=== PATIENT | female | born 1940 | race Caucasian/White ===

== ENCOUNTER → 2016-11-25 | Outpatient (CLI) | payer OTHER ==
[~2016-11-25] MED LIST: HYDR25TA4; METO25TA3; POTA-167
[2016-11-25 08:59] LABS: Urine Bilirubin Negative (Negative); Urine Blood Negative /uL (Negative); Urine Color Yellow (Yellow); Urine Glucose Normal (Normal); Urine Ketone Negative (Negative); Urine Nitrite Negative (Negative); Urine RBC <1 /hpf (0 - 4); Urine Squamous Epithelial Cell FEW /hpf (<5); Urine Urobilinogen Normal (Negative); Urine pH 6.5 (5.0-8.0)
[2016-11-25 09:00] LABS: Basophils # (auto) 0 uL; Basophils % (auto) 0.3 % (0.0-2.0); Eosinophils # (auto) 0.2 uL; Eosinophils % (auto) 3.4 % (0.0-7.0); Hemoglobin 14.1 g/dL (12.2-16.2); Lymphocytes # (auto) 1.5 uL; Lymphocytes % (auto) 21.9 % (10.0-50.0); Mean Corpuscular Hemoglobin 29.1 pg (28.0-32.0); Mean Corpuscular Hgb Conc. 33.5 g/dL (32.0-36.0); Mean Corpuscular Volume 86.8 fL (80.0-100.0); Mean Platelet Volume 8.3 fL (7.4-10.4); Monocytes # (auto) 0.6 uL; Monocytes % (auto) 8.4 % (0.0-12.0); Neutrophils # (auto) 4.5 uL; Platelet Count (auto) 289 10^3/uL (140-450); Red Cell Distribution Width 13.9 % (11.6-16.0); White Blood Cell 6.8 10^3/uL (4.4-10.8)
[2016-11-25 09:21] LABS: Albumin 3.7 g/dL (3.4-5.0); BUN/Creatinine Ratio 12.2; Bilirubin, Total 0.6 mg/dL (0.2-1.0); Potassium 3.3 mmol/L (3.5-5.1); Total Protein 7.6 g/dL (6.4-8.2)
== END | disposition home or self-care (01) ==
LOC: LAB 07:40
PROVIDERS: ATTEND Internal Medicine
DX: E11.9 Type 2 diabetes mellitus without complications (principal); I10 Essential (primary) hypertension; K21.9 Gastro-esophageal reflux disease without esophagitis
CPT/HCPCS: 36415; 80053; 80061; 81001; 82043; 82306; 82378; 82607; 83036; 84439; 84443; 85025; 85652; 86803

== ENCOUNTER 2016-12-10 04:34 | Inpatient (IN) | payer OTHER ==
[~2016-12-10] VITALS: Ht 160 cm; Wt 105.5 kg
[2016-12-10] MEDS ORDERED: ONDANSETRON HCL 4 MG/2 ML VIAL IV ONE (07:30)
[2016-12-10] MEDS ORDERED: MORPHINE SULF INJ 2 MG/ML SYRINGE 1ML IV ONE (07:30)
[2016-12-10 07:52] LABS: Basophils # (auto) 0 uL; Basophils % (auto) 0.3 % (0.0-2.0); Eosinophils # (auto) 0 uL; Eosinophils % (auto) 0.1 % (0.0-7.0); Hematocrit 43.5 % (36.0-46.0); Hemoglobin 14.6 g/dL (12.2-16.2); Lymphocytes # (auto) 0.7 uL; Lymphocytes % (auto) 4.8 % (10.0-50.0); Mean Corpuscular Hemoglobin 28.3 pg (28.0-32.0); Mean Corpuscular Hgb Conc. 33.5 g/dL (32.0-36.0); Mean Corpuscular Volume 84.4 fL (80.0-100.0); Monocytes # (auto) 0.3 uL; Monocytes % (auto) 1.9 % (0.0-12.0); Neutrophils # (auto) 14.4 uL; Neutrophils % (auto) 92.9 % (37.0-80.0); Platelet Count (auto) 316 10^3/uL (140-450); Red Cell Distribution Width 13.7 % (11.6-16.0); White Blood Cell 15.6 10^3/uL (4.4-10.8)
[2016-12-10 08:17] LABS: Albumin 3.6 g/dL (3.4-5.0); BUN/Creatinine Ratio 14.5; Bilirubin, Total 0.6 mg/dL (0.2-1.0); Calcium 9.2 mg/dL (8.5-10.1); Potassium 3.6 mmol/L (3.5-5.1); Total Protein 7.8 g/dL (6.4-8.2)
[2016-12-10 08:33] LABS: Partial Thromboplastin Time 26.6 sec (22.64-33.71); Prothrombin Time 10.8 sec (9.37-12.3)
[2016-12-10 09:12] LABS: Urine Bilirubin Negative (Negative); Urine Blood Negative /uL (Negative); Urine Color Yellow (Yellow); Urine Glucose Normal (Normal); Urine Ketone Negative (Negative); Urine Mucus FEW (None Seen); Urine Nitrite Negative (Negative); Urine RBC <1 /hpf (0 - 4); Urine Squamous Epithelial Cell FEW /hpf (<5); Urine Urobilinogen Normal (Negative)
[2016-12-10] MEDS ORDERED: GASTROGRAFIN 120 ML SOL ONE (09:24)
[2016-12-10] MEDS ORDERED: PIPERACILLIN-TAZOB 3.375GM 100 ML IV ONE (11:15)
[2016-12-10] MEDS ORDERED: metroNIDAZOLE 500MG/100ML 100 ML IV ONE (11:15)
[2016-12-10] MEDS ORDERED: SODIUM CHLORIDE 0.9% 1,000 ML IV ONE (11:15)
[2016-12-10] MEDS ORDERED: FAMOTIDINE (10MG/ML) 2ML VL IV ONE (12:00)
[2016-12-10] MEDS ORDERED: cefTRIAXone 1GM/50ML D5W 50 ML IV ONE (12:00)
[2016-12-10] MEDS ORDERED: DEXTROSE (50%) 50ML SYRG IV PRN (12:15)
[2016-12-10] MEDS: ACCU-CHEK COMFORT CURVE STRIP VI SCH ×3 (12:54→23:58)
[2016-12-10] MEDS: InsuLIN REG 1unit/0.01ml Soln (100units/ml) SC SCH ×3 (12:56→23:58)
[2016-12-10] MEDS: ONDANSETRON HCL 4 MG/2 ML VIAL IV PRN ×2 (12:56→20:56)
[2016-12-10] MEDS: HYDROmorphone HCL 2 MG/ML VL IV PRN ×2 (12:56→20:54)
[2016-12-10] MEDS ORDERED: MET50T PO (16:35)
[2016-12-10] MEDS ORDERED: TRAM50TA2 PO (16:35)
[2016-12-10] MEDS ORDERED: ROPI0.5T PO (16:35)
[2016-12-10] MEDS ORDERED: HYDR-4072 PO (16:35)
[2016-12-10] MEDS ORDERED: OMEP20CA5 PO (16:35)
[2016-12-10] MEDS ORDERED: CLOP75TA41 PO (16:35)
[2016-12-10] MEDS ORDERED: ESTR0.1C VA (16:35)
[2016-12-10] MEDS ORDERED: METF-312 PO (16:35)
[2016-12-10] MEDS: metroNIDAZOLE 500MG/100ML 100 ML IV SCH ×2 (18:00→23:50)
[2016-12-10 20:00] VITALS: BP 148/62
[2016-12-10] MEDS: SODIUM CHLORIDE 0.9% 1,000 ML IV SCH (20:10)
[2016-12-10 22:00] VITALS: BP 148/62
[2016-12-10] MEDS ORDERED: TEMAZEPAM 15 MG CAP PO ONE (23:00)
[2016-12-11] MEDS: SODIUM CHLORIDE 0.9% 1,000 ML IV SCH ×4 (03:00→20:36)
[2016-12-11 05:30] VITALS: BP 154/62
[2016-12-11 05:57] LABS: Basophils # (auto) 0 uL; Basophils % (auto) 0.2 % (0.0-2.0); Eosinophils # (auto) 0.1 uL; Eosinophils % (auto) 1.1 % (0.0-7.0); Hematocrit 38.7 % (36.0-46.0); Hemoglobin 12.6 g/dL (12.2-16.2); Lymphocytes # (auto) 1.5 uL; Lymphocytes % (auto) 20.6 % (10.0-50.0); Mean Corpuscular Hemoglobin 28.4 pg (28.0-32.0); Mean Corpuscular Hgb Conc. 32.6 g/dL (32.0-36.0); Mean Corpuscular Volume 86.9 fL (80.0-100.0); Mean Platelet Volume 8.3 fL (7.4-10.4); Monocytes # (auto) 0.7 uL; Monocytes % (auto) 8.7 % (0.0-12.0); Neutrophils # (auto) 5.2 uL; Neutrophils % (auto) 69.4 % (37.0-80.0); Platelet Count (auto) 260 10^3/uL (140-450); Red Cell Distribution Width 13.9 % (11.6-16.0); White Blood Cell 7.5 10^3/uL (4.4-10.8)
[2016-12-11] MEDS: InsuLIN REG 1unit/0.01ml Soln (100units/ml) SC SCH ×3 (06:00→17:23)
[2016-12-11] MEDS: ACCU-CHEK COMFORT CURVE STRIP VI SCH ×3 (06:00→17:23)
[2016-12-11] MEDS: metroNIDAZOLE 500MG/100ML 100 ML IV SCH ×2 (06:12→12:24)
[2016-12-11 06:24] LABS: Albumin 3.2 g/dL (3.4-5.0); BUN/Creatinine Ratio 17.7; Potassium 3.1 mmol/L (3.5-5.1)
[2016-12-11 06:26] LABS: Bilirubin, Total 0.6 mg/dL (0.2-1.0); Total Protein 6.5 g/dL (6.4-8.2)
[2016-12-11] MEDS ORDERED: cefTRIAXone 1GM/50ML D5W 50 ML IV SCH (09:00)
[2016-12-11] MEDS ORDERED: POTASSIUM CHL 10% (20 MEQ/15ML) ORAL SOLN PO ONE (09:45)
[2016-12-11 09:49] VITALS: BP 151/69
[2016-12-11] MEDS ORDERED: FAMOTIDINE (10MG/ML) 2ML VL IV SCH (10:00)
[2016-12-11] MEDS: Boost Glucose Control 8 Ounces PO SCH ×2 (12:14→18:20)
[2016-12-11 13:30] VITALS: BP 158/73
[2016-12-11] MEDS ORDERED: DIPHENOXYLATE W/ATROPINE 2.5 MG TAB PO PRN (13:45)
[2016-12-11 16:35] VITALS: BP 158/74
[2016-12-11 22:00] VITALS: BP 160/69
[2016-12-12] MEDS: ACCU-CHEK COMFORT CURVE STRIP VI SCH ×2 (00:15→05:26)
[2016-12-12] MEDS: SODIUM CHLORIDE 0.9% 1,000 ML IV SCH (05:10)
[2016-12-12] MEDS: InsuLIN REG 1unit/0.01ml Soln (100units/ml) SC SCH ×2 (05:26)
[2016-12-12 05:30] VITALS: BP 152/71
[2016-12-12 07:19] LABS: Basophils # (auto) 0 uL; Basophils % (auto) 0.5 % (0.0-2.0); Eosinophils # (auto) 0.2 uL; Hematocrit 38.6 % (36.0-46.0); Hemoglobin 12.7 g/dL (12.2-16.2); Lymphocytes # (auto) 1.2 uL; Lymphocytes % (auto) 17.9 % (10.0-50.0); Mean Corpuscular Hemoglobin 28.3 pg (28.0-32.0); Mean Corpuscular Volume 85.8 fL (80.0-100.0); Mean Platelet Volume 8.4 fL (7.4-10.4); Monocytes # (auto) 0.6 uL; Monocytes % (auto) 8.4 % (0.0-12.0); Neutrophils # (auto) 4.6 uL; Neutrophils % (auto) 70.2 % (37.0-80.0); Platelet Count (auto) 245 10^3/uL (140-450); Red Cell Distribution Width 13.5 % (11.6-16.0); White Blood Cell 6.6 10^3/uL (4.4-10.8)
[2016-12-12 07:40] LABS: Albumin 3.2 g/dL (3.4-5.0); BUN/Creatinine Ratio 11.9; Bilirubin, Total 0.5 mg/dL (0.2-1.0); Calcium 8.2 mg/dL (8.5-10.1); Total Protein 6.7 g/dL (6.4-8.2)
[2016-12-12] MEDS: Boost Glucose Control 8 Ounces PO SCH (08:00)
[2016-12-12 09:00] VITALS: BP 167/76
[2016-12-12] MEDS ORDERED: POTASSIUM CHL 20 Meq TABLET PO ONE (10:45)
[2016-12-12 11:00] VITALS: BP 150/67
[2016-12-12] MEDS ORDERED: POTASSIUM CHL 10% (20 MEQ/15ML) ORAL SOLN PO ONE (11:00)
[2016-12-12 11:02] VITALS: BP 150/67
== END 2016-12-12 11:33 | disposition home or self-care (01) | DRG 389 ==
LOC: ER 04:41 → OVERFLOW 04:42 → EAST 15:07 → CENTRAL 18:44
PROVIDERS: ADMIT Internal Medicine; ATTEND Family Medicine
DX: K56.60 Unspecified intestinal obstruction (principal); E44.0 Moderate protein-calorie malnutrition; Z68.41 Body mass index [BMI] 40.0-44.9, adult; E11.22 Type 2 diabetes mellitus with diabetic chronic kidney disease; R91.8 Other nonspecific abnormal finding of lung field; E04.2 Nontoxic multinodular goiter; N18.2 Chronic kidney disease, stage 2 (mild); A08.4 Viral intestinal infection, unspecified; E11.21 Type 2 diabetes mellitus with diabetic nephropathy; Z83.3 Family history of diabetes mellitus; Z87.891 Personal history of nicotine dependence; Z85.038 Personal history of other malignant neoplasm of large intestine; Z80.9 Family history of malignant neoplasm, unspecified; Z88.5 Allergy status to narcotic agent; Z90.49 Acquired absence of other specified parts of digestive tract; Z90.710 Acquired absence of both cervix and uterus; Z92.21 Personal history of antineoplastic chemotherapy
CPT/HCPCS: 36415; 71250; 74176; 74250; 80053; 81001; 82150; 82962; 83036; 83605; 83690; 85025; 85610; 85730; 87040; 87045; 87493; 87899; 93005; 96365; 96367; 96375; J0696; J2405; J3490

== ENCOUNTER 2017-03-19 10:03 | Emergency (ER) | payer OTHER ==
[~2017-03-19] VITALS: Ht 162.6 cm; Wt 72.6 kg
[~2017-03-19 10:03] MED LIST changes: +CLOP75TA41 PO; +ESTR0.1C VA; +HYDR-4072 PO; -HYDR25TA4; +MET50T PO; +METF-370 PO; -METO25TA3; +OMEP20CA74 PO; -POTA-167; +ROPI0.5T PO; +TRAM50TA2 PO
[2017-03-19] MEDS ORDERED: cloNIDine HCL 0.1 MG TAB ONE (14:53)
[2017-03-19] MEDS ORDERED: cloNIDine HCL 0.1 MG TAB PO ONE (15:00)
[2017-03-19 17:25] VITALS: BP 109/71
== END 2017-03-19 17:42 | disposition home or self-care (01) ==
LOC: ER 10:03
DX: R51 Headache (principal); I10 Essential (primary) hypertension; Z87.891 Personal history of nicotine dependence; Z90.49 Acquired absence of other specified parts of digestive tract; Z90.710 Acquired absence of both cervix and uterus; W18.00XA Striking against unspecified object with subsequent fall, initial encounter; Y93.89 Activity, other specified; Y99.8 Other external cause status; Y92.89 Other specified places as the place of occurrence of the external cause
CPT/HCPCS: 70450

== ENCOUNTER → 2017-04-08 | Outpatient (CLI) | payer OTHER ==
[2017-04-08 08:19] LABS: Potassium 3.8 mmol/L (3.5-5.1)
== END | disposition home or self-care (01) ==
LOC: LAB 07:41
PROVIDERS: ATTEND Internal Medicine
DX: E11.9 Type 2 diabetes mellitus without complications (principal); E03.9 Hypothyroidism, unspecified; E78.00 Pure hypercholesterolemia, unspecified; Z90.710 Acquired absence of both cervix and uterus; Z90.49 Acquired absence of other specified parts of digestive tract
CPT/HCPCS: 36415; 80061; 82607; 83036; 84132; 84439; 84443

== ENCOUNTER → 2017-07-07 | Outpatient (CLI) | payer OTHER | END | disposition home or self-care (01) | LOC: LAB 14:19 | PROVIDERS: ATTEND Internal Medicine | DX: G89.29 Other chronic pain (principal); F11.90 Opioid use, unspecified, uncomplicated | CPT/HCPCS: 80307 ==

== ENCOUNTER 2023-01-12 11:09 | Emergency (ER) | payer OTHER ==
[~2023-01-12] VITALS: Ht 165.1 cm; Wt 65.0 kg
[~2023-01-12 11:09] MED LIST changes: -CLOP75TA41 PO; +CLOP75TA70 PO; -ROPI0.5T PO; +ROPI0.5T16 PO
[2023-01-12 12:21] LABS: Basophils # (auto) 0.1 10 ^3/uL (0-0.2); Basophils % (auto) 0.7 % (0.0-2.0); Eosinophils # (auto) 0.4 10 ^3/uL (0-0.8); Eosinophils % (auto) 5.9 % (0.0-7.0); Hemoglobin 14.1 g/dL (12.2-16.2); Lymphocytes % (auto) 12.6 % (10.0-50.0); Mean Corpuscular Hemoglobin 30.4 pg (28.0-32.0); Mean Corpuscular Hgb Conc. 34.5 g/dL (32.0-36.0); Mean Corpuscular Volume 88.3 fL (80.0-100.0); Monocytes # (auto) 0.5 10 ^3/uL (0-1.3); Monocytes % (auto) 6.8 % (0.0-12.0); Neutrophils # (auto) 5.6 10 ^3/uL (1.6-8.6); Nucleated Red Blood Cells % 0.2 %; Red Blood Cells 4.64 10^6/uL (4.0-5.20); Red Cell Distribution Width 13.2 % (11.8-14.3); White Blood Cell 7.5 10^3/uL (4.4-10.8)
[2023-01-12 12:37] LABS: INR 1.04 (0.9-1.15); Partial Thromboplastin Time 29.8 sec (24.6-33.4)
[2023-01-12 12:50] LABS: Albumin 3.4 g/dL (3.4-5.0); Potassium 3.4 mmol/L (3.5-5.1)
[2023-01-12 12:57] LABS: BUN/Creatinine Ratio 16.3 (10.0-20.0); Bilirubin, Total 0.6 mg/dL (0.2-1.0); Calcium 8.9 mg/dL (8.5-10.1); Total Protein 6.9 g/dL (6.4-8.2)
[2023-01-12 14:09] LABS: Urine Bacteria NONE SEEN /hpf (None Seen); Urine Blood Negative /uL (Negative); Urine Specific Gravity 1.016 (1.001-1.035); Urine WBC 53 /hpf (0 - 5)
[2023-01-12] MEDS: CEFTRIAXONE SODIUM 2 GM in D5W 5% 100 ML IV ONE ×2 (16:14→16:18)
[2023-01-12] MEDS ORDERED: ACET-6 PO (16:14)
[2023-01-12] MEDS ORDERED: CEPH-510 PO (16:14)
[2023-01-12 16:15] VITALS: BP 141/81
[2023-01-12] MEDS ORDERED: ACETAMINOPHEN 500 MG TAB PO ONE (16:15)
[2023-01-12] MEDS ORDERED: PHEN95TA10 PO (16:15)
[2023-01-12] MEDS ORDERED: CEPHALEXIN 250 MG CAP PO ONE (16:15)
== END 2023-01-12 16:08 | disposition home or self-care (01) ==
LOC: ER 11:09
DX: S23.41XA Sprain of ribs, initial encounter (principal); N39.0 Urinary tract infection, site not specified; E11.9 Type 2 diabetes mellitus without complications; I10 Essential (primary) hypertension; Z88.5 Allergy status to narcotic agent; Z79.899 Other long term (current) drug therapy; Z90.49 Acquired absence of other specified parts of digestive tract; Z98.890 Other specified postprocedural states; Z90.710 Acquired absence of both cervix and uterus; Z87.891 Personal history of nicotine dependence; Z79.84 Long term (current) use of oral hypoglycemic drugs; W01.0XXA Fall on same level from slipping, tripping and stumbling without subsequent striking against object, initial encounter; Y93.89 Activity, other specified; Y92.89 Other specified places as the place of occurrence of the external cause; Y99.8 Other external cause status
CPT/HCPCS: 36415; 70450; 71250; 72125; 74176; 80053; 81001; 82962; 84484; 85025; 85610; 85730; 93005; 99285; J0696; J7060